=== PATIENT | female | born 1950 | race Caucasian/White ===

== ENCOUNTER 2016-05-02 07:24 | Day surgery (SDC) | payer OTHER ==
[~2016-05-02] VITALS: Ht 161.3 cm; Wt 85.0 kg
[2016-05-02] VITALS (7 sets, daily range): BP systolic 106–140; BP diastolic 57–86; PULSE 79–106; RESP 18–20; TEMP 97.6–99.1; O2SAT 92–99
[~2016-05-02 07:24] MED LIST: LISI-586 PO; VITA20003 PO
[2016-05-02] MEDS ORDERED: POVIDONE IODINE 5% (ANTISEPSIS KIT) 4 APPLICATIONS EACH NARE SCH (08:00)
[2016-05-02] MEDS ORDERED: VANCOMYCIN 1000 MG/NS 250 ML - implanted port/tunneled catheter IV SCH ×2 (08:00)
[2016-05-02] MEDS ORDERED: CHLORHEXIDINE GLUCONATE 2 % 1 PACK (2 CLOTHS) TOPICAL SCH (08:00)
[2016-05-02] MEDS ORDERED: ceFAZolin 2 GM PREMIX 50 ML - implanted port/tunneled catheter insertion IV SCH (08:00)
[2016-05-02] MEDS ORDERED: SODIUM CHLORIDE 0.9% 1000 ML IV SCH (08:00)
[2016-05-02] MEDS ORDERED: VITA200013 (08:14)
[2016-05-02] MEDS ORDERED: LEVOTAB PO (08:14)
[2016-05-02] MEDS ORDERED: MULT1TAB88 (08:14)
[2016-05-02] MEDS ORDERED: LISI10TA PO (08:14)
[2016-05-02] MEDS ORDERED: LIDOCAINE 1%/EPINEPHrine 1:100,000 SOLN 20 ML VIAL ONE (09:35)
[2016-05-02] MEDS ORDERED: fentaNYL CITRATE 250 MCG/5 ML AMP ONE (09:37)
[2016-05-02] MEDS ORDERED: MIDAZOLAM HCL 5 MG/5 ML VIAL ONE (09:37)
--- NOTE | 2016-05-02 10:39 | RADRPT ---
EXAM DATE/TIME: 05/02/2016 09:37 [place] COMPARISON: No previous studies available for comparison. INDICATIONS : Patient with a history of breast cancer MEDICAL HISTORY : Breast Cancer Cataracts SURGICAL HISTORY : Colonoscopy Lumpectomy Hysterectomy Tonsillectomy ENCOUNTER: Initial ACUITY: 4-6 months PAIN SCORE: 0/10 FLUORO TIME: 0.3 minutes SEDATION TIME: 30 minutes ACCESS: Right internal jugular vein SEDATION: 1.) 5 mg midazolam (Versed) IV 2.) 250 mcg fentanyl (Sublimaze) IV Prophylactic antibiotics were administered with appropriate pre-procedure timing. Vancomycin within 2 hours of procedure, Ancef (or alternative) within 1 hour of procedure. DEVICE: 1. 8 [place] single lumen Bard Power Port PROCEDURE : 1. Continuous pulse oximetry and EKG monitoring. 2. Intravenous conscious sedation. 3. Ultrasound guidance for venous access. 4. Fluoroscopic guided implantable central venous port placement. The patient was placed supine. The neck was prepped in sterile fashion. Full sterile technique was u sed, including cap, mask, sterile gloves and gown, and a large sterile sheet. Hand hygiene and 2% ch lorhexidine Betadine was utilized per protocol for cutaneous antisepsis with appropriate dry time for site. The skin and subcutaneous tissues were infiltrated with local anesthetic solution. Under direct ultrasound guidance, central venous access was accomplished in the targeted vessel. The ultrasound images depicting access guidance were stored and saved to PACS for permanent record. A s ubcutaneous pocket was created using blunt dissection. The port was introduced to the pocket. The c atheter tubing was fed through a subcutaneous tunnel to the venotomy site. The catheter tubing was c ut to a suitable length and then was introduced through a valved Peel-Away sheath and positioned with catheter tubing tip at the cavo-atrial junction level. The pocket incision was closed with subcutic ular Vicryl suture. Steri-Strips were applied. The port was flushed and locked with heparin solutio n per protocol. Sterile dressing was applied to the site. The patient tolerated the procedure well. Conscious sedation was performed with the prescribed dosages and duration as above. The patient martínez ated the procedure well and there were no complications. EKG and oximetry remained stable throughout the procedure. The patient was sent to post anesthesia recovery in stable condition. CONCLUSION: Uncomplicated ultrasound and fluoroscopic guided implanted central venous port catheter placement as described in detail above. An 8 [place] Power port was placed. Davian Polanco MD on May 02, 2016 at 10:29 Board Certified Radiologist. This report was verified electronically.
[2016-05-02] MEDS ORDERED: SODIUM CHLORIDE 0.9% FLUSH 5 ML FLUSH IVF PRN (11:15)
--- NOTE | 2016-05-02 11:15 | PD.RAD ---
Post Procedure Progress Note Pre Procedure Diagnosis: (1) Cancer Post Procedure Diagnosis: (1) Cancer Procedure Date: May 02, 2016 Supervising Radiologist: Davian Polanco Proceduralist/Assist: RT Suyapa(R)() Anesthesia: Conscious Sedation Plan of Activity Patient to Unit: ROPU Patient Condition: Good See PACS Report for procedural detail/treatment Central Venous Access Device Procedure 1 Right Internal Jugular Infusaport Placement single lumen Davian Polanco MD May 02, 2016 11:15
== END 2016-05-02 12:52 | disposition home or self-care (01) ==
LOC: HROP 07:24 → HRIP 07:25 → HROP 12:52
PROVIDERS: ATTEND Internal Medicine
DX: C50.911 Malignant neoplasm of unspecified site of right female breast (principal)
CPT/HCPCS: 36561; 76937; 77001; 99152; 99153; C1788; J0690; J1642; J2250; J3010; J7030